=== PATIENT | female | born 1985 | race African-American/Black ===

== ENCOUNTER 2016-09-14 12:08 | Emergency (ER) | payer SELFPAY ==
[2016-09-14] MEDS ORDERED: OXYCODONE-ACETAMINOPHEN 5-325 MG TABLET PO ONE (13:32)
--- NOTE | 2016-09-14 14:03 | ER Document Report ---
ED Skin Rash/Insect Bite/Abscs - General Chief Complaint: Abscess Stated Complaint: VAGINAL ABCESSES Time Seen by Provider: 09/14/16 13:31 Mode of Arrival: Ambulatory Information source: Patient Notes: 31-year-old female presents to ED for multiple abscesses to bilateral labia and buttocks. She also has a yellow-green vaginal discharge. She also has pelvic pain. She states she has had these abscesses for the last several days and is slowly increased in pain and size. TRAVEL OUTSIDE OF THE [place] IN LAST 30 DAYS: No - HPI Patient complains to provider of: Tender/swollen area Onset: Last week Onset/Duration: Gradual Quality of pain: Achy, Throbbing Severity: Severe Pain Level: 5 Skin Character: Abscess, Other - Vaginal discharge Quality of rash: Painful Identify cause: No Exacerbated by: Denies Relieved by: Denies Similar symptoms previously: Yes Recently seen / treated by doctor: No - Related Data Allergies/Adverse Reactions: acetaminophen [From Tylenol] Adverse Reaction (Verified 03/22/15 10:03) Past Medical History - General Information source: Patient - Social History Smoking Status: Current Every Day Smoker Cigarette use (# per day): Yes - 3-4 cigarettes a day Chew tobacco use (# tins/day): No Smoking Education Provided: Yes - less Then 2 minute Frequency of alcohol use: Social Drug Abuse: Marijuana Occupation: none Lives with: Parents Family History: Reviewed & Not Pertinent Patient has suicidal ideation: No Patient has homicidal ideation: No - Past Medical History Cardiac Medical History: Reports: None Pulmonary Medical History: Reports: Hx Bronchitis - 2001 EENT Medical History: Reports: None Neurological Medical History: Reports: None Endocrine Medical History: Reports: None Renal/ Medical History: Reports: Hx Pelvic Inflammatory Disease - chlamydia Malignancy Medical History: Reports: None GI Medical History: Reports: Hx Gastroesophageal Reflux Disease, Hx Irritable Bowel Musculoskeltal Medical History: Reports None Skin Medical History: Reports Hx Cellulitis Psychiatric Medical History: Reports: Hx Anxiety Traumatic Medical History: Reports: None Infectious Medical History: Reports: None Past Surgical History: Reports: Hx Cholecystectomy, Hx Tubal Ligation - Immunizations Hx Diphtheria, Pertussis, Tetanus Vaccination: No - 2004 Review of Systems - Review of Systems Constitutional: No symptoms reported EENT: No symptoms reported Cardiovascular: No symptoms reported Respiratory: No symptoms reported Gastrointestinal: No symptoms reported Genitourinary: No symptoms reported Female Genitourinary: Vaginal discharge, Vaginal odor Musculoskeletal: No symptoms reported Skin: Other - multiple labial abscesses and one buttock abscess Hematologic/Lymphatic: No symptoms reported Neurological/Psychological: No symptoms reported -: Yes All other systems reviewed and negative Physical Exam - Vital signs Vitals: Temp Pulse Resp BP Pulse Ox 98.1 F 93 20 120/72 99 09/14/16 12:28 09/14/16 12:28 09/14/16 12:28 09/14/16 12:28 09/14/16 12:28 Interpretation: Normal - General General appearance: Appears well, Alert - HEENT Head: Normocephalic, Atraumatic Eyes: Normal Pupils: PERRL - Respiratory Respiratory status: No respiratory distress Chest status: Nontender Breath sounds: Normal Chest palpation: Normal - Cardiovascular Rhythm: Regular Heart sounds: Normal auscultation Murmur: No - Abdominal Inspection: Normal Distension: No distension Bowel sounds: Normal Tenderness: Nontender Organomegaly: No organomegaly - Genitourinary External exam: Other - multiple abscesses Speculum exam: Vaginal discharge Vaginal bleeding: None - Back Back: Normal, Nontender - Extremities General upper extremity: Normal inspection, Nontender, Normal color, Normal ROM , Normal temperature General lower extremity: Normal inspection, Nontender, Normal color, Normal ROM , Normal temperature, Normal weight bearing. No: Genoveva's sign - Neurological Neuro grossly intact: Yes Cognition: Normal Orientation: AAOx4 [place] Coma Scale Eye Opening: Spontaneous [place] Coma Scale Verbal: Oriented [place] Coma Scale Motor: Obeys Commands [place] Coma Scale Total: 15 Speech: Normal Motor strength normal: LUE, RUE, LLE, RLE Sensory: Normal - Psychological Associated symptoms: Normal affect, Normal mood - Skin Skin Temperature: Warm Skin Moisture: Dry Skin Color: Normal Skin irregularity: Abscess - multiple labial abscess and buttock abscesses Irregularity with: Swelling, Tenderness, Warmth Course - Re-evaluation Re-evalutation: 09/14/16 18:28 Pelvic exam completed due to foul-smelling drainage yellow in color. 4 abscesses I&D as described and progress note. Left labial and right buttocks abscess sent for culture. Patient treated with Bactrim and Septra pain medicine and nausea medicine and instructed to follow-up with primary doctor. Patient instructed to use Epsom salt bath 3 times a day until abscesses are healing. - Vital Signs Vital signs: Temp Pulse Resp BP Pulse Ox 97.7 F 71 20 121/84 98 09/14/16 16:45 09/14/16 16:45 09/14/16 16:45 09/14/16 16:45 09/14/16 16:45 - Laboratory Laboratory results interpreted by me: 09/14/16 14:55 Urine Protein 30 H Urine Ketones 20 H Ur Leukocyte Esterase SMALL H Procedures - Incision and Drainage Right Labia Type: Simple, Multiple - 2 on right labia 1 on left labia and 1 on buttocks Anesthetic type: 1% Lidocaine mL's of anesthetic: 2 Blade size: 11 I&D procedure: Other - surgical scrub Incision Method: Incision made by scalpel Amount/type of drainage: purulent drainage Female anatomy: 1 - abscess 2 - abscess 3 - abscess 4 - abscess Discharge - Discharge Clinical Impression: Abscess of right genital labia, Left genital labial abscess, Abscess of right buttock, Bacterial vaginosis Condition: Stable Disposition: HOME, SELF-CARE Instructions: Family Physicians / Practices Additional Instructions: PELVIC PAIN: There are many causes of pain in the pelvic area. The cause could be the tubes, ovaries, uterus, intestines, appendix, pelvic muscles and connective tissue, or the urinary tract. The cause of your pelvic pain is not clear. However, it seems safe to treat you outside the hospital. If the pain sounds like a temporary problem, we sometimes wait to see if it goes away. Other patients may need additional tests, such as pelvic ultrasound or cultures. Conditions may change. Call us or come back for reexamination if any problems occur, such as: (1) Pain that becomes more severe, steady, or becomes concentrated in one specific area. Also, pain that is more severe with movement or coughing. (2) Vomiting that persists or becomes more frequent. (3) Blood in the vomitus, urine, or bowel movements. Blood in the stool may have a tarry or black appearance. (4) Shaking chills or fever greater than 100 degrees. (5) The abdomen becomes more distended or swollen. (6) Bowel movements cease. (7) Heavy vaginal bleeding. PELVIC INFLAMMATORY DISEASE: You have been diagnosed as having pelvic inflammatory disease (PID). This is an infection of the fallopian tubes and surrounding areas of the pelvis. Symptoms are usually pelvic pain and discharge. The infection can do permanent damage to the tubes and ovaries. It should be taken very seriously. Treatment is antibiotics, which may be given by vein or by injection if the infection seems serious. It's important that you receive all recommended medication. Condoms help prevent spread of this infection to others. Because this infection is spread sexually, it's important that your sexual partner be checked before resuming sexual relations. If a culture shows gonorrhea or chlamydia organisms, the law requires that this be reported to the health department. Call the doctor or return at once if you develop increasing fever, rash, severe pelvic pain, vaginal bleeding (other than your period), or problems with your bladder or bowels. ABSCESS: You have an abscess (boil). This a pus-forming infection, usually due to staph. Some boils may be left to drain on their own, but most require lancing. From the time the tender lump first appears, it may be three or four days before the abscess is ready to pilar. Local heat and rest help at this stage of treatment. An antibiotic may prevent spread of the infection. Once the abscess is opened, packing may be placed into it. This is done so pus is not sealed inside by premature closure of the cavity. The packing will be removed at your follow-up visit or you may be advised to remove it yourself at home. Sometimes this packing must be replaced a few times during healing. The wound will heal with surprisingly little scar. Depending on the size and location of an abscess, healing can take one to four weeks. You may shower and wash the area around the incision site two or three times a day. Antibiotics may be prescribed, but are usually not necessary after an abscess has been drained. If you develop fever, chills, worsening pain, or increasing swelling in the area, call the doctor or return immediately. POST INCISION AND DRAINAGE: You have had an incision made to allow drainage of an abscess. The incision must remain open so that pus and debris can drain from the wound. If the abscess cavity is large, packing is placed. This keeps the tissues from collapsing and trapping pus inside, while the body shrinks the cavity. The packing may need to be replaced every day or two. The physician will instruct you on the packing. Keep a bulky dressing over the area. Replace it if it becomes saturated with blood or pus. Do not disturb the packing (if present). You may shower and cleanse the area with gentle soap and warm water two or three times a day. Local warmth may be soothing, and may promote faster healing. Return if you develop high fever or chills, or if you note spreading redness, increasing swelling, or increasing tenderness. CEPHALEXIN: The antibiotic you've been prescribed is a member of the cephalosporin class. This type of antibiotic covers a wide variety of infections, including those of the skin, lungs, and urinary tract. It's useful for staph infections. This antibiotic is slightly similar to the penicillin family. In rare cases , a person who is allergic to penicillin will also be allergic to this medication. If you have had a severe allergic reaction to penicillin, and have not taken this antibiotic since that time, notify your doctor. Antibiotics which cover many germs ("broad spectrum" antibiotics) are more likely to cause diarrhea or "yeast" infections. Women prone to vaginal yeast problems may suffer an attack after taking this antibiotic. In infants, oral thrush (white spots "stuck" on the cheek) or yeast diaper rash may result. See your doctor if these problems occur. Call at once if you develop itching, hives , shortness of breath, or lightheadedness. TRIMETHOPRIM-SULFA: You have been given a prescription for trimethoprim-sulfa (TMS, Septra, Bactrim). This is a combination antibiotic of the sulfa class, often used for urinary tract infections, middle ear infections, bronchitis, shigella intestinal infection, and Pneumocystis pneumonia. TMS is usually well-tolerated. Occasional side effects include nausea and decreased appetite. Septra is not recommended for infants less than two months of age. Do not take this medication if you have experienced severe side effects or allergy to sulfa medicine. You should stop this medicine at once and contact your physician if you develop any rash, joint pain, shortness of breath, bruising, or jaundice ( yellow color in the skin), or if you develop any other new or unusual symptoms. CEPHALOSPORINS: An antibiotic of the cephalosporin class has been prescribed. This type of antibiotic covers a wide variety of infections, including those of the skin, lungs, middle ear, and urinary tract. This antibiotic is somewhat similar to the penicillin family. In rare cases , a person who is allergic to penicillin will also be allergic to this medication. If you have had a severe allergic reaction to penicillin, and have not taken this antibiotic since that time, notify your doctor. Antibiotics which cover many germs ("broad spectrum" antibiotics) are more likely to cause diarrhea or "yeast" infections. Women prone to vaginal yeast problems may suffer an attack after taking this antibiotic. In infants, oral thrush (white spots "stuck" on the cheek) or yeast diaper rash may result. See your doctor if these problems occur. Call the doctor at once if you develop hives, itching, shortness of breath , or lightheadedness. AZITHROMYCIN: Azithromycin (Zithromax) is a broad spectrum antibiotic in the same class as erythromycin. It can treat a variety of bacterial infections, but is most frequently used for respiratory infections. Azithromycin is extremely long-lasting. It accumulates in body tissues and continues to kill bacteria for many days. In order to improve absorption, Azithromycin should be taken at least one hour before or two hours after a meal. It does not have the same strong tendency to upset the stomach as erythromycin and is usually very well tolerated. Patients who have had a rash or other true allergic reactions to erythromycin should not take this medication. Call if you develop gastrointestinal distress, severe diarrhea, rash, hives, itching, or shortness of breath. METRONIDAZOLE: Metronidazole (Flagyl) has been prescribed. This medication is used to kill a type of bacteria called anaerobes, and protozoan parasites such as trichomonas and Giardia. Flagyl often causes a metallic taste in the mouth and mild nausea. Do not use alcohol in any form with Flagyl (including alcohol in medication elixirs). Flagyl interacts with alcohol to cause flushing, palpitations, headache, stomach cramps, and vomiting. Do not use Flagyl if you are taking Antabuse (disulfiram). Call the doctor at once if you develop rash, shortness of breath, itching, or lightheadedness. ORAL NARCOTIC MEDICATION: You have been given a prescription for pain control. This medication is a narcotic. It's best taken with food, as nausea can result if taken on an empty stomach. Don't operate machinery or drive within six hours of taking this medication. Do not combine this medicine with alcohol, or with any medication which can cause sedation (such as cold tablets or sleeping pills) unless you get permission from the physician. Narcotics tend to cause constipation. If possible, drink plenty of fluids and eat a diet high in fiber and fruits. Please be aware that prescription narcotics also have the potential for abuse. People become addicted to these medications because of the general sense of wellbeing that they induce. This feeling along with a significant reduction in tension, anxiety, and aggression provides a stimulating seductive quality to these drugs. Once your pain is under control, we encourage you to discard your unused narcotics. Epsom Salt Soaks Soak the wound area in a container of warm epsom salt water. If you can't get the wound area into a bucket or weber, use a folded towel soaked in the epsom salt solution and apply to the area. Use clean hot tap water (about the temperature of a very warm bath), mixing in about one (1) teaspoon for every pint of water. Two gallon --> 16 teaspoons Epsom Salts One gallon --> 8 teaspoons Epsom Salts Two quarts --> 4 teaspoons Epsom Salts One quart --> 2 teaspoons Epsom Salts Soak the wound for about 20 minutes while gently moving it around in the water. Repeat this four (4) times a day. Please follow-up with your primary doctor within the next 48 hours to have these abscesses reassess and ensure that they are decreasing in size. Please take antibiotics until they are completed do not stop them because she feel better. Please take baths 3 times a day as described with the Epsom salt. Antinausea Medication You have been given a medication to suppress nausea and vomiting. This type of medication can be given as a shot, pill, or suppository. It will usually last for many hours. Pills and shots usually last six to eight hours, suppositories last about 12 hours. For the typical illness, only one or two doses of the medication may be necessary. Mild lightheadedness may occur. This type of medicine can cause drowsiness. Do not drive or operate dangerous machinery while under its influence. Do not mix with alcohol. See your doctor at once if you have muscle spasms or tightness, or uncontrollable motions (particularly of the neck, mouth, or jaw). Persistent vomiting or severe lightheadedness should also be evaluated by the physician. FOLLOW-UP CARE: If you have been referred to a physician for follow-up care, call the physician s office for an appointment as you were instructed or within the next two days. If you experience worsening or a significant change in your symptoms, notify the physician immediately or return to the Emergency Department at any time for re-evaluation. Prescriptions: Promethazine HCl [Phenergan 25 mg Tablet] 25 mg PO Q6HP PRN #10 tablet PRN Reason: Cephalexin Monohydrate [Keflex 500 mg Capsule] 500 mg PO QID #20 capsule Sulfamethoxazole/Trimethoprim [Septra-Ds 800-160 mg Tablet] 1 tab PO BID #20 tablet Forms: Smoking Cessation Education, Return to Work
[2016-09-14] MEDS ORDERED: CEPHALEXIN 500 MG CAPSULE PO ONE (14:09)
[2016-09-14] MEDS ORDERED: SULFAMETHOXAZOLE/TRIMETHOPRIM 800-160 MG TABLET PO ONE (14:09)
--- NOTE | 2016-09-14 14:10 | ER Document Report ---
ED Medical Screen (RME) - General Chief Complaint: Abscess Stated Complaint: VAGINAL ABCESSES Time Seen by Provider: 09/14/16 13:31 TRAVEL OUTSIDE OF THE [place] IN LAST 30 DAYS: No - Related Data Allergies/Adverse Reactions: acetaminophen [From Tylenol] Adverse Reaction (Verified 03/22/15 10:03) Past Medical History - Social History Chew tobacco use (# tins/day): - 3 Frequency of alcohol use: Occasional Drug Abuse: Marijuana - Past Medical History Cardiac Medical History: Denies: Hx Coronary Artery Disease, Hx Heart Attack, Hx Hypertension Pulmonary Medical History: Reports: Hx Bronchitis - 2001 Denies: Hx Asthma, Hx COPD, Hx Pneumonia Neurological Medical History: Denies: Hx Cerebrovascular Accident, Hx Seizures Renal/ Medical History: Reports: Hx Pelvic Inflammatory Disease. Denies: Hx Peritoneal Dialysis Musculoskeltal Medical History: Denies Hx Arthritis Psychiatric Medical History: Reports: Hx Anxiety Past Surgical History: Reports: Hx Cholecystectomy, Hx Tubal Ligation - Immunizations Hx Diphtheria, Pertussis, Tetanus Vaccination: No - 2004 Physical Exam - Vital signs Vitals: Temp Pulse Resp BP Pulse Ox 98.1 F 95 20 120/72 99 09/14/16 12:30 09/14/16 12:30 09/14/16 12:30 09/14/16 12:30 09/14/16 12:30 Course - Re-evaluation Re-evalutation: 09/14/16 14:08 Patient coming in for ABSCESS - Vital Signs Vital signs: Temp Pulse Resp BP Pulse Ox 98.1 F 95 20 120/72 99 09/14/16 12:30 09/14/16 12:30 09/14/16 12:30 09/14/16 12:30 09/14/16 12:30
[2016-09-14] MEDS ORDERED: LIDOCAINE 1% INJ-PF (10 MG/ML) 30 ML SDV INJ ONE ×2 (14:12→16:06)
[2016-09-14 15:06] LABS: APPEARANCE,URINE SLIGHTLY-CLOUDY; BILIRUBIN,URINE NEGATIVE (NEGATIVE); GLUCOSE, URINE NEGATIVE (NEGATIVE); KETONES,URINE 20 mg/dL (NEGATIVE); LEUKOCYTE ESTERASE,URINE SMALL (NEGATIVE); NITRITE,URINE NEGATIVE (NEGATIVE); PROTEIN,URINE 30 mg/dL (NEGATIVE); URINE SPECIFIC GRAVITY 1.032; UROBILINOGEN,URINE NEGATIVE mg/dL (<2.0)
[2016-09-14 15:11] LABS: RBC,URINE 0-1 /HPF; WBC,URINE 0-1 /HPF
[2016-09-14] MEDS ORDERED: METRONIDAZOLE 500 MG TABLET PO ONE (16:06)
[2016-09-14] MEDS ORDERED: AZITHROMYCIN 250 MG TABLET PO ONE (16:06)
[2016-09-14] MEDS ORDERED: CEFTRIAXONE INJ 250 MG VIAL IM ONE (16:06)
[2016-09-14 16:31] LABS: CHLAM PCR NOT DETECTED (NOT DETECT)
[2016-09-14] MEDS ORDERED: HYDROCODONE/ACETAMINOPHEN 5-325 MG 6 TAB/DSPK PO PRN (16:32)
[2016-09-14 16:59] VITALS: BP 121/84
== END 2016-09-14 17:00 | disposition home or self-care (01) ==
LOC: ER 12:08
PROC: 0H98XZZ Drainage of Buttock Skin, External Approach (ICD-10-PCS; principal; 2016-09-14)
PROC: 0H9AXZZ Drainage of Inguinal Skin, External Approach (ICD-10-PCS; 2016-09-14)
DX: N76.0 Acute vaginitis (principal); B96.89 Other specified bacterial agents as the cause of diseases classified elsewhere; L02.31 Cutaneous abscess of buttock; R10.2 Pelvic and perineal pain; F17.210 Nicotine dependence, cigarettes, uncomplicated; Z71.6 Tobacco abuse counseling
CPT/HCPCS: 10061; 99283; 96372; 51701; 87070; 87205; 87210; 87075; 87077; 81001; 87186; 87491; 87591; J0696

== ENCOUNTER 2016-11-24 02:26 | Emergency (ER) | payer SELFPAY ==
[2016-11-24] MEDS ORDERED: MORPHINE SULFATE 10 MG/ML INJ IV ONE ×2 (02:59→08:52)
[2016-11-24] MEDS ORDERED: DEXAMETHASONE SOD PHOS INJ 10 MG/1 ML VIAL IV ONE (03:03)
[2016-11-24] MEDS ORDERED: ONDANSETRON HCL INJ/PF 4 MG/2 ML SDV IV ONE (03:13)
--- NOTE | 2016-11-24 03:21 | ER Document Report ---
ED ENT - General TRAVEL OUTSIDE OF THE [place] IN LAST 30 DAYS: No <KHLOE RICHARDS - Last Filed: 11/24/16 07:06> <MESERET JASMINE - Last Filed: 11/24/16 10:51> - General Chief Complaint: Sore Throat Stated Complaint: SORE THROAT Time Seen by Provider: 11/24/16 02:50 Notes: Patient is a 31 year old female who presents to the ED complaining of throat pain and swelling. She states she had a sore throat on 11/13 and went to urgent care, diagnosed with strep and put on amoxicillin for 3 days. She states her symptoms improved over thursday and thursday, was pain free up until thursday evening when she had sudden onset of sore throat, loss of voice and swelling. Denies fevers, chills. Able to tolerate swallowing her own secretions and fluids, denies SOB, chest pain PMH; anxiety (KHLOE RICHARDS) - Related Data Allergies/Adverse Reactions: acetaminophen [From Tylenol] Adverse Reaction (Verified 11/24/16 02:42) Past Medical History - Social History Family History: Reviewed & Not Pertinent - Past Medical History Cardiac Medical History: Denies: Hx Coronary Artery Disease, Hx Heart Attack, Hx Hypertension Pulmonary Medical History: Reports: Hx Bronchitis - 2001 Denies: Hx Asthma, Hx COPD, Hx Pneumonia Neurological Medical History: Denies: Hx Cerebrovascular Accident, Hx Seizures Renal/ Medical History: Reports: Hx Pelvic Inflammatory Disease. Denies: Hx Peritoneal Dialysis GI Medical History: Reports: Hx Gastroesophageal Reflux Disease, Hx Irritable Bowel Musculoskeltal Medical History: Denies Hx Arthritis Skin Medical History: Reports Hx Cellulitis Psychiatric Medical History: Reports: Hx Anxiety Past Surgical History: Reports: Hx Cholecystectomy, Hx Tubal Ligation - Immunizations Hx Diphtheria, Pertussis, Tetanus Vaccination: No - 2004 <KHLOE RICHARDS - Last Filed: 11/24/16 07:06> - Social History Smoking Status: Unknown if Ever Smoked <MESERET JASMINE - Last Filed: 11/24/16 10:51> Review of Systems - Review of Systems Constitutional: No symptoms reported EENT: See HPI Cardiovascular: No symptoms reported Respiratory: No symptoms reported Gastrointestinal: No symptoms reported -: Yes All other systems reviewed and negative <KHLOE RICHARDS - Last Filed: 11/24/16 07:06> Physical Exam <KHLOE RICHARDS - Last Filed: 11/24/16 07:06> <MESERET JASMINE - Last Filed: 11/24/16 10:51> - Vital signs Vitals: Temp Pulse Resp BP Pulse Ox 98.9 F 81 18 114/72 99 11/24/16 02:43 11/24/16 02:43 11/24/16 02:43 11/24/16 02:43 11/24/16 02:43 - Notes Notes: PHYSICAL EXAM GENERAL: Alert, interacts well. HEAD: Normocephalic, atraumatic. EYES: Pupils equal, round, and reactive to light. Extraocular movements intact. ENT: Oral mucosa moist, tongue midline. Uvula shifted away from midline to patients left. Airway patent. Evidence of tonsillar enlargement, peritonsillar abscess versus retropharyngeal abscess. NECK: Full range of motion. Supple. Trachea midline. LUNGS: Clear to auscultation bilaterally, no wheezes, rales, or rhonchi. No respiratory distress. HEART: Regular rate and rhythm. No murmurs, gallops, or rubs. ABDOMEN: Soft, nondistended, nontender. No guarding, rebound, or rigidity.. Bowel sounds present in all 4 quadrants. EXTREMITIES: Moves all 4 extremities spontaneously. No edema, radial and dorsalis pedis pulses 2/4 bilaterally. No cyanosis. NEUROLOGICAL: Alert and oriented x4. Normal speech. PSYCH: Normal affect, normal mood. SKIN: Warm, dry, normal turgor. No rashes or lesions noted. (KHLOE RICHARDS) Course - Laboratory Result Diagrams: 11/24/16 03:27 11/24/16 03:27 - Diagnostic Test Radiology reviewed: Image reviewed, Reports reviewed <KHLOE RICHARDS - Last Filed: 11/24/16 07:06> - Laboratory Result Diagrams: 11/24/16 03:27 11/24/16 03:27 <MESERET JASMINE - Last Filed: 11/24/16 10:51> - Re-evaluation Re-evalutation: 11/24/16 05:30 Patient is a 31-year-old female who is hemodynamically stable, no acute distress and afebrile. CBC elevated with leukocytosis and left shift of 21, 000. Chemistry stable without any evidence of . CT of the soft tissues shows concern for retropharyngeal abscess. Given that we do not have ENT available control system manager at this facility patient will require transfer. Patient requesting to go divided. Patient's pain is under control. 11/24/16 05:55 Patient has been accepted by ENT physician control system manager Dr. Piedra to their emergency department, patient is NPO. has received IV decadron, IV unasyn. Pending transportation. 11/24/16 07:06 patient remains stable, care has been signed out to [facility] STEFANIE Phan (KHLOE RICHARDS) 11/24/16 10:50 stable for transfer no airway issues at this time (MESERET JASMINE) - Vital Signs Vital signs: Temp Pulse Resp BP Pulse Ox 98.9 F 81 18 110/76 100 11/24/16 02:43 11/24/16 02:43 11/24/16 08:00 11/24/16 04:01 11/24/16 08:00 - Laboratory Laboratory results interpreted by me: 11/24/16 11/24/16 03:27 03:27 WBC 21.3 H Seg Neuts % (Manual) 88 H Band Neutrophils % 1 L Lymphocytes % (Manual) 7 L Abs Neuts (Manual) 19.0 H Chloride 108 H BUN 5 L Discharge <KHLOE RICHARDS - Last Filed: 11/24/16 07:06> <MESERET JASMINE - Last Filed: 11/24/16 10:51> - Discharge Clinical Impression: Retropharyngeal abscess Condition: Stable Disposition: [facility]
[2016-11-24 03:54] LABS: ALANINE AMINOTRANSFERASE 14 U/L (9-52); ALBUMIN 3.7 g/dL (3.5-5.0); ALKALINE PHOSPHATASE 106 U/L (38-126); ANION GAP 9 (5-19); ASPARTATE AMINO TRANSFERASE 17 U/L (14-36); BILIRUBIN,DIRECT 0.3 mg/dL (0.0-0.4); BILIRUBIN,TOTAL 0.4 mg/dL (0.2-1.3); BLOOD UREA NITROGEN 5 mg/dL (7-20); CALCIUM 9.4 mg/dL (8.4-10.2); CARBON DIOXIDE 25 mmol/L (22-30); CHLORIDE 108 mmol/L (98-107); CREATININE RESULT 0.67 mg/dL (0.52-1.25); GLUCOSE 106 mg/dL (75-110); POTASSIUM 3.9 mmol/L (3.6-5.0); SODIUM 141.7 mmol/L (137-145); TOTAL PROTEIN 6.9 g/dL (6.3-8.2)
[2016-11-24 03:57] LABS: HEMATOCRIT 39.9 % (36.0-47.0); HEMOGLOBIN 13.5 g/dL (12.0-15.5); HGB HCT DIFFERENCE 0.6; MEAN CORPUSCULAR HEMOGLOBIN 32.4 pg (27.0-33.4); MEAN CORPUSCULAR HGB CONC 33.7 g/dL (32.0-36.0); MEAN CORPUSCULAR VOLUME 96 fl (80-97); RED BLOOD COUNT 4.16 10^6/uL (3.72-5.28); RED CELL DISTRIBUTION WIDTH 13.6 % (11.5-14.0); WHITE BLOOD COUNT 21.3 10^3/uL (4.0-10.5)
[2016-11-24] MEDS ORDERED: LIDOCAINE 1% INJ-PF (10 MG/ML) 30 ML SDV NEB ONE ×2 (03:58→08:10)
[2016-11-24] MEDS ORDERED: NORMAL SALINE 1000 ML 1,000 ML IV ONE (04:09)
[2016-11-24 04:18] LABS: BAND NEUTROPHILS % (MANUAL) 1 % (3-5); BASOPHILS % (MANUAL) 0 % (0-2); EOSINOPHILS % (MANUAL) 0 % (0-6); LYMPHOCYTES % (MANUAL) 7 % (13-45); TOTAL CELLS COUNTED 100
[2016-11-24 04:20] LABS: RBC MORPHOLOGY COMMENT NORMO-CYTIC/CHROMIC; TOXIC GRANULATION 2+; TOXIC VACUOLATION PRESENT
[2016-11-24] MEDS ORDERED: LORAZEPAM INJ 2 MG/1 ML VIAL IV ONE (04:26)
[2016-11-24] MEDS ORDERED: KETOROLAC TROMETHAMINE INJ/PF 30 MG/1 ML SDV IV ONE (04:32)
[2016-11-24] MEDS ORDERED: AMPICILLIN SOD/SULBACTAM 3 GM VIAL IV ONE (04:36)
--- NOTE | 2016-11-24 05:27 | RADIOLOGY REPORT (SQ) ---
EXAM DESCRIPTION: CT SOFT TISSUE NECK WITH COMPLETED DATE/TIME: 11/24/2016 4:56 am REASON FOR STUDY: sore throat with right peritonsillar swelling. COMPARISON: None. TECHNIQUE: Post IV contrasted scanning from skull base through lung apices with review of bone, soft tissue and lung windows. Reconstructed coronal and sagittal MPR images reviewed. All images stored on PACS. All CT scanners at this facility use dose modulation, iterative reconstruction, and/or weight based d osing when appropriate to reduce radiation dose to as low as reasonably achievable (ALARA). [facility]: Dose Right [facility]: CareDose [facility]: Dose Right [facility]: Teradose 4D [facility]: Tech21 CONTRAST TYPE AND DOSE: contrast/concentration: Isovue 370.00 mg/ml; Total Contrast Delivered: 75.0 ml; Total Saline Delivered: 55.0 ml RENAL FUNCTION: GFR > 60. RADIATION DOSE: Up-to-date CT equipment and radiation dose reduction techniques were employed. CTDIv ol: 9.0 mGy. DLP: 258 mGy-cm. . LIMITATIONS: There is streak artifact from the patient's dental amalgam and from the radiopaque earr ings and nasal piercing. FINDINGS: SKULL BASE: Intact. MAJOR SALIVARY GLANDS: No solid or cystic masses. No inflammatory changes. LYMPHADENOPATHY: There are bilateral enlarged cervical nodes, the largest at the right jugular chain is measuring 1.5 cm in short axis. MUCOSAL MASSES OR ASYMMETRY: The right palatine tonsil is enlarged There is a 2.2 x 1.7 cm hypoechoic area with a hyperdense rim at the right tonsil, suggestive of a peritonsillar abscess. The hypoecho ic area extends inferiorly along the right side of the oropharynx and into the retropharyngeal space. LARYNX/CORDS: No abnormal findings. VASCULAR STRUCTURES: The major vessels are patent. LUNG APICES: Clear. BONES: Intact. THYROID: Normal size. No masses. PARANASAL SINUSES: Clear. IMPRESSION: Enlarged right tonsil with a 2.2 x 1.7 cm peritonsillar abscess. Hypoechoic area extend ing inferiorly along the right side of the oropharynx and into the retropharyngeal space, worrisome f or retropharyngeal abscess. ENT consult recommended. Cervical adenopathy, may be reactive. Followup imaging as clinically warranted. TECHNICAL DOCUMENTATION: JOB ID: [id number] [facility] Quality ID # [id number]: Final reports with documentation of one or more dose reduction techniques (e.g., Au tomated exposure control, adjustment of the mA and/or kV according to patient size, use of iterative reconstruction technique) 2010 [employer]- All Rights Reserved
[2016-11-24] MEDS ORDERED: NORMAL SALINE 1000 ML 1,000 ML IV PRN (06:24)
[2016-11-24] MEDS ORDERED: LIDOCAINE 2% VISCOUS SOLN 20 ML UDCUP PO ONE (08:58)
[2016-11-24 10:55] VITALS: BP 115/72
== END 2016-11-24 11:02 | disposition short-term general hospital (02) ==
LOC: ER 02:26
DX: J39.0 Retropharyngeal and parapharyngeal abscess (principal); D72.829 Elevated white blood cell count, unspecified
CPT/HCPCS: 99285; 96375; 96365; 36415; 87040; 87880; 84703; 85025; 87077; 80053; 87186; 83605; 70491; J0295; J3490 ×2; J1885; J2270; J2060; J2405; J7030; J1100

== ENCOUNTER 2017-05-22 16:30 | Emergency (ER) | payer SELFPAY ==
[2017-05-22 16:38] VITALS: BP 113/71
--- NOTE | 2017-05-22 16:59 | ER Document Report ---
HPI - HPI Patient complains to provider of: sore right labia Onset: Other - 5 days Quality of pain: Burning Pain Level: 3 Context: 32 yo female with no hx hsv has a sore right labia that is painful. Worried that she has an STD, suspicious of partner. No dysuria, frequency. Associated Symptoms: None Exacerbated by: Denies Relieved by: Denies - ROS ROS below otherwise negative: Yes Systems Reviewed and Negative: Yes All other systems reviewed and negative - REPRODUCTIVE LMP: 04/27/17 Reproductive: DENIES: : Past Medical History - General Information source: Patient - Social History Smoking Status: Current Every Day Smoker Frequency of alcohol use: None Drug Abuse: None Lives with: Family Family History: Reviewed & Not Pertinent Pulmonary Medical History: Reports: Hx Bronchitis - 2001 Renal/ Medical History: Reports: Hx Pelvic Inflammatory Disease. Denies: Hx Peritoneal Dialysis GI Medical History: Reports: Hx Gastroesophageal Reflux Disease, Hx Irritable Bowel Skin Medical History: Reports Hx Cellulitis Psychiatric Medical History: Reports: Hx Anxiety Past Surgical History: Reports: Hx Cholecystectomy, Hx Tubal Ligation - Immunizations Hx Diphtheria, Pertussis, Tetanus Vaccination: No - 2004 Vertical Provider Document - CONSTITUTIONAL Agree With Documented VS: Yes Exam Limitations: No Limitations General Appearance: No Apparent Distress - INFECTION CONTROL TRAVEL OUTSIDE OF THE [place] IN LAST 30 DAYS: No - HEENT HEENT: Normal ENT Exam - NECK Neck: Supple - RESPIRATORY Respiratory: Breath Sounds Normal, No Respiratory Distress O2 Sat by Pulse Oximetry: 98 - CARDIOVASCULAR Cardiovascular: Regular Rate, Regular Rhythm - GI/ABDOMEN Gastrointestinal: Abdomen Soft, Abdomen Non-Tender, No Organomegaly - REPRODUCTIVE Notes: 3mm ucler right inferior introitus, tender - BACK Back: Normal Inspection, CVA Tenderness-Left. negative: CVA Tenderness-Right - NEURO Level of Consciousness: Awake, Alert - DERM Integumentary: Warm, Dry Course - Re-evaluation Re-evalutation: 05/22/17 18:50 Urinalysis is 1+ bacteria and 18 WBCs I will treat with Macrobid for urinary tract infection. The HSV culture is pending and the STD cultures are pending. She will call me back for the results 05/22/17 18:59 Patient wants treatment possible gonorrhea and chlamydia since she did not have symptoms when she had a when she was 17 years old. She knows numbers to call me for the results also the herpes simplex resolved on Thursday or Thursday. - Vital Signs Vital signs: Temp Pulse Resp BP Pulse Ox 99.4 F 96 16 113/71 98 05/22/17 16:36 05/22/17 16:36 05/22/17 16:36 05/22/17 16:36 05/22/17 16:36 Discharge - Discharge Clinical Impression: Genital ulcer, female Urinary tract infection Qualifiers: Urinary tract infection type: site unspecified Hematuria presence: without hematuria Qualified Code(s): N39.0 - Urinary tract infection, site not specified Condition: Good Disposition: HOME, SELF-CARE Instructions: Antibiotic Ointment Protection ([facility]), Azithromycin ([facility]), Nitrofurantoin ([facility]), Rocephin ([facility]), Ulcer ([facility]), Urinary Tract Infection ([facility]) Additional Instructions: bacitracin to the introitus ulceration herpes test pending, call me on thursday at [phone] for the result warm sitz bath for healing the skin take the antibiotics for urinary tract infection call me in 3 hours for the STD result [phone] Prescriptions: Nitrofurantoin/Nitrofuran Mac [Macrobid 100 mg Capsule] 100 mg PO BID #14 capsule Forms: Return to Work
[2017-05-22 17:52] LABS: BACTERIA (WET MOUNT) 4+ BACTERIA SEEN; RBCS (WET MOUNT) NO RBCS SEEN; T.VAGINALIS (WET MOUNT) NO TRICHOMONAS SEEN; WBCS (WET MOUNT) 2+ WBCS SEEN; YEAST (WET MOUNT) NO YEAST SEEN
[2017-05-22 18:12] LABS: AMORPHOUS SEDIMENT,URINE 1+ /HPF; APPEARANCE,URINE TURBID; BILIRUBIN,URINE NEGATIVE (NEGATIVE); COLOR,URINE YELLOW; GLUCOSE, URINE NEGATIVE (NEGATIVE); KETONES,URINE NEGATIVE (NEGATIVE); LEUKOCYTE ESTERASE,URINE SMALL (NEGATIVE); NITRITE,URINE NEGATIVE (NEGATIVE); PROTEIN,URINE NEGATIVE (NEGATIVE); URINE SPECIFIC GRAVITY 1.024; UROBILINOGEN,URINE NEGATIVE mg/dL (<2.0)
[2017-05-22] MEDS ORDERED: IPRATROPIUM/ALBUTEROL 0.5-2.5 MG/3 ML AMPUL NEB ONE (18:14)
[2017-05-22] MEDS ORDERED: NITROFURANTOIN MONOHYD/M-CRYST 100 MG CAPSULE PO ONE (18:41)
[2017-05-22] MEDS ORDERED: CEFTRIAXONE INJ 250 MG VIAL IM ONE (18:58)
[2017-05-22] MEDS ORDERED: LIDOCAINE 1% INJ-PF (10 MG/ML) 30 ML SDV INFIL ONE (18:58)
[2017-05-22] MEDS ORDERED: AZITHROMYCIN 250 MG TABLET PO ONE (18:59)
[2017-05-22] MEDS ORDERED: ONDANSETRON 4 MG TAB.RAPDIS PO ONE (18:59)
[2017-05-22 19:31] LABS: CHLAM PCR DETECTED (NOT DETECT); GON PCR NOT DETECTED (NOT DETECT)
== END 2017-05-22 19:43 | disposition home or self-care (01) ==
LOC: ER 16:30
DX: N76.6 Ulceration of vulva (principal); N39.0 Urinary tract infection, site not specified; F17.210 Nicotine dependence, cigarettes, uncomplicated
CPT/HCPCS: 99283; 96372; 87086; 87210; 81001; 87250; 87491; 87591; S0119; J3490; J0696; J8499

== ENCOUNTER 2017-11-30 01:22 | Emergency (ER) | payer SELFPAY ==
[2017-11-30 01:27] VITALS: BP 110/69
[2017-11-30] MEDS ORDERED: CEPHALEXIN 500 MG CAPSULE PO ONE (02:03)
--- NOTE | 2017-11-30 02:07 | ER Document Report ---
ED General - General Chief Complaint: Finger Injury Stated Complaint: FINGER PAIN Time Seen by Provider: 11/30/17 01:36 Notes: Patient is a 32-year-old female without chronic medical problems who presents with complaints of swelling and pain to her left third digit that has been ongoing for the past 4 months. Patient states that she sustained a deep cut over the PIP of the third digit along the dorsal surface approximately 4 months ago. She did not seek care at that time. She states the wound healed but ever since that time she has not been able to fully extend the digit and anytime she bumps the area she develops recurrence of swelling and a throbbing, aching, constant pain. Nothing is new or different that prompted a visit to the emergency department tonight. She has not seen her general doctor or an orthopedic doctor regarding today's concerns. She is right-hand dominant. TRAVEL OUTSIDE OF THE [place] IN LAST 30 DAYS: No - Related Data Allergies/Adverse Reactions: No Known Allergies Allergy (Unverified 11/30/17 01:25) Past Medical History - General Information source: Patient - Social History Smoking Status: Current Every Day Smoker Chew tobacco use (# tins/day): No Frequency of alcohol use: None Drug Abuse: None Lives with: Spouse/Significant other Family History: Reviewed & Not Pertinent Patient has suicidal ideation: No Patient has homicidal ideation: No - Past Medical History Cardiac Medical History: Denies: Hx Coronary Artery Disease, Hx Heart Attack, Hx Hypertension Pulmonary Medical History: Reports: Hx Bronchitis - 2001 Denies: Hx Asthma, Hx COPD, Hx Pneumonia Neurological Medical History: Denies: Hx Cerebrovascular Accident, Hx Seizures Renal/ Medical History: Reports: Hx Pelvic Inflammatory Disease. Denies: Hx Peritoneal Dialysis GI Medical History: Reports: Hx Gastroesophageal Reflux Disease, Hx Irritable Bowel Musculoskeletal Medical History: Denies Hx Arthritis Skin Medical History: Reports Hx Cellulitis Psychiatric Medical History: Reports: Hx Anxiety Past Surgical History: Reports: Hx Cholecystectomy, Hx Tubal Ligation - Immunizations Hx Diphtheria, Pertussis, Tetanus Vaccination: No - 2004 Review of Systems - Review of Systems Notes: Constitutional: Negative for fever. HENT: Negative for sore throat. Eyes: Negative for visual changes. Cardiovascular: Negative for chest pain. Respiratory: Negative for shortness of breath. Gastrointestinal: Negative for abdominal pain, vomiting or diarrhea. Genitourinary: Negative for dysuria. Musculoskeletal: Positive for left third finger pain Skin: Negative for rash. Neurological: Negative for headaches, weakness or numbness. 10 point ROS negative except as marked above and in HPI. Physical Exam - Vital signs Vitals: Temp Pulse Resp BP Pulse Ox 97.5 F 79 17 110/69 97 11/30/17 01:26 11/30/17 01:26 11/30/17 01:26 11/30/17 01:26 11/30/17 01:26 Notes: PHYSICAL EXAMINATION: GENERAL: Well-appearing, well-nourished and in no acute distress. HEAD: Atraumatic, normocephalic. EYES: sclera anicteric, conjunctiva are normal. ENT: Moist mucous membranes. NECK: Normal range of motion LUNGS: Normal work of breathing HEART: 2+ radial pulses bilaterally, capillary refill less than 2 seconds in all digits of the left hand EXTREMITIES: There is a hematoma over the PIP of the dorsal aspect of the left third digit. No pain over the flexor sheath. No circumferential swelling. Bedside ultrasound without fluid collection. NEUROLOGICAL: No focal neurological deficits. Moves all extremities spontaneously and on command. PSYCH: Normal mood, normal affect. SKIN: Warm, Dry, normal turgor, no rashes or lesions noted. Course - Re-evaluation Re-evalutation: 11/30/17 03:55 Presentation is most consistent with a delayed presentation of an extensor tendon laceration of the third digit of the left hand. The patient's finger is unable be fully extended at the level of the PIP and there appears to be a hematoma overlying the area. The patient reports that the hematoma reflex anytime she has any even light trauma to the area. The patient is worried about the possibility of infection which seems improbable given the duration of her symptoms and that the exam appears more consistent with hematoma versus cellulitis. However, will treat with a brief course of antibiotics to cover for the possibility that this could be a recurrent infection. I have however emphasized the patient that I believe she needs to follow-up with a hand specialist as her exam and history are most consistent with an extensor tendon injury. At this time will discharge with return precautions and follow-up recommendations. Verbal discharge instructions given a the bedside and opportunity for questions given. Medication warnings reviewed. Patient is in agreement with this plan and has verbalized understanding of return precautions and the need for primary care follow-up in the next 24-72 hours. - Vital Signs Vital signs: Temp Pulse Resp BP Pulse Ox 97.5 F 79 17 110/69 97 11/30/17 01:11/30/17 01:11/30/17 01:11/30/17 01:11/30/17 01:26 Discharge - Discharge Clinical Impression: Left third finger swelling Injury of extensor tendon of left hand Qualifiers: Encounter type: initial encounter Qualified Code(s): S66.902A - Unspecified injury of unspecified muscle, fascia and tendon at wrist and hand level, left hand, initial encounter Condition: Good Disposition: HOME, SELF-CARE Additional Instructions: I am concerned that you cut the extensor tendon in the third finger left hand 4 months ago during the original injury. Ideally, we would like to see you immediately after the injury. However I would like you to follow-up with the hand surgeon as soon as possible to see if this can be corrected. Please take antibiotics as prescribed. Return if you develop fever, worsening pain, spreading redness of your hand or arm, or any other symptoms that are worrisome to you. Prescriptions: Cephalexin Monohydrate [Keflex 500 mg Capsule] 500 mg PO Q6H 7 Days capsule Referrals: ELLY STONE DO [ACTIVE STAFF] - Follow up tomorrow
== END 2017-11-30 02:17 | disposition home or self-care (01) ==
LOC: ER 01:22
DX: S66.902A Unspecified injury of unspecified muscle, fascia and tendon at wrist and hand level, left hand, initial encounter (principal); M79.645 Pain in left finger(s); W45.8XXA Other foreign body or object entering through skin, initial encounter; F17.200 Nicotine dependence, unspecified, uncomplicated
CPT/HCPCS: 99283